=== PATIENT | female | born 1960 | race Caucasian/White ===

== ENCOUNTER → 2018-11-14 | Outpatient (CLI) | payer MEDICARE ==
[2018-04-18 11:00] VITALS: BP 128/80
[~2018-11-14] MED LIST: ALBU2.5V5 NEB; ALBU2.5V8 INH; BUDE10.2 IH; LEVO500T59 PO; MONT10TA49 PO
--- NOTE | 2018-11-15 09:46 | KCIC ---
CT of the chest without contrast, low dose lung cancer screening protocol. INDICATION: 41 pack year history of smoking. COMPARISON STUDY: None. TECHNIQUE: Multidetector CT imaging of the chest was performed using a low-dose, lung cancer screening protocol. FINDINGS: Heart size is normal. No pericardial effusion is identified. Coronary calcification is noted. No pathologically enlarged mediastinal adenopathy is identified on this limited noncontrast enhanced evaluation of the mediastinum. Centrilobular emphysematous changes are noted throughout the lungs. No focal consolidative infiltrate is seen. No pneumothorax, or pleural effusion is identified. No acute osseous changes are identified. Limited visualization of the upper abdomen is unremarkable. There is a 4 mm noncalcified nodule in the lingula (axial image 118). Adjacent linear opacities likely reflects scarring or minimal atelectasis. Mild discoid atelectasis is seen involving the basilar lower lobes bilaterally. Somewhat thickened subpleural linear focus is seen in the right upper lobe 4 mm in thickness. The appearance is nonspecific most likely reflect scarring. Attention on subsequent studies recommended. 1 to 2 mm noncalcified nodule seen in the anterior right upper lobe (axial image 78). There is a 4 mm noncalcified nodule in the anterobasal right upper lobe (axial image 175). IMPRESSION: 1. Scattered sub-5 mm pulmonary nodules, as described above in detail. Lung RADS category 2. Recommend repeat low-dose CT chest in 12 months 2. Centrilobular emphysema CT DOSING PQRS STATEMENT: One or more of the following individualized dose reduction techniques were utilized for this examination: 1. Automated exposure control 2. Adjustment of the mA and/or kV according to patient size 3. Use of iterative reconstruction technique Electronically signed by: Ezequiel Sharp MD (11/14/2018 1:49 PM) [id number]
== END | disposition home or self-care (01) ==
LOC: KCIC CT 10:18
PROVIDERS: ATTEND Internal Medicine
DX: Z12.2 Encounter for screening for malignant neoplasm of respiratory organs (principal); J43.2 Centrilobular emphysema; J98.11 Atelectasis; R91.8 Other nonspecific abnormal finding of lung field; I25.10 Atherosclerotic heart disease of native coronary artery without angina pectoris; Z87.891 Personal history of nicotine dependence
CPT/HCPCS: G0297